=== PATIENT | male | born 1990 | race Caucasian/White ===

== ENCOUNTER → 2020-10-03 09:11 | Outpatient (CLI) | payer OTHER, SELFPAY ==
--- NOTE | 2020-10-03 | DI.ECHO.S_ITS ---
[facility] +---------+ : : [address] : : : : [id number] : : : : Phone: [phone]+ Echocardiogram Report + + :Name: KEYLA BLUE Study Date: 10/03/2020 Height: 68 in : :[facility] Weight: 205 lb : : Gender: Male BSA: 2.1 m2 : :: 1990 Age: 30 yrs BP: 144/87 mmHg: :Reason For Study: General medical exam : : Performed By: Beatrice Vuong : :Referring: AURORA RICHARDSON : + + Interpretation Summary 1) Normal left ventriciular size, thickness, wall motion, and systolic function (EF 60-65%). 2) Upper normal right ventricular size with normal function. 3) No signficant valvular abnormalities. 4) No prior Echo available for comparison. Procedure: A two-dimensional transthoracic echocardiogram with color flow and Doppler was performed. The study quality was technically adequate. There is no prior echocardiogram noted for this patient. The patient was in normal sinus rhythm during the exam. Left Ventricle: The left ventricle is normal in size and wall thickness. The ejection fraction is estimated to be 60-65%. Left ventricular systolic function appears normal without focal wall motion abnormalities. Right Ventricle: The right ventricular systolic function is normal. Atria: The left atrial size is normal. Right atrial size is normal. There is no Doppler evidence for an interatrial shunt. Mitral Valve: The mitral valve is normal in structure and function. There is trace mitral regurgitation. Aortic Valve: The aortic valve is trileaflet. The aortic valve opens well. There is no aortic valve stenosis. No aortic regurgitation is present. Tricuspid Valve: The tricuspid valve is normal in structure and function. There is a trace or physiologic amount of tricuspid regurgitation. Pulmonary artery pressures cannot be estimated because of the lack of a measurable TR jet velocity. Pulmonic Valve: The pulmonic valve leaflets are thin and pliable; valve motion is normal. There is no pulmonic valvular regurgitation. Great Vessels: The aortic root is normal size. The ascending aorta is normal in size. The pulmonary artery is normal size. The IVC is of normal diameter and collapses greater than 50% with a sniff. This suggests a low right atrial pressure of 3 mm Hg. Pericardium/ Pleura There is no pericardial effusion. MMode/2D Measurements & Calculations LVIDd: 5.5 cm LVOT diam: 2.1 cm LVIDs: 3.6 cm Ao root diam: 3.6 cm FS: 35.0 % asc Aorta Diam: 2.7 cm IVSd: 0.60 cm LVPWd: 0.67 cm LV schaefer. diameter/BSA (cm/m^2): 2.7 LV sys. diameter/BSA (cm/m^2): 1.7 LA A2 area: 11.0 cm2 RA long axis: 4.9 cm LA A4 area: 17.6 cm2 RA area: 16.5 cm2 LA length (vol): 5.4 cm RA vol: 47.3 ml LA vol: 30.3 ml RA : 22.9 ml/m2 LA vol index: 14.7 ml/m2 IVC diam: 1.3 cm RVD1 (basal): 4.0 cm TAPSE: 2.1 cm Doppler Measurements & Calculations Ao V2 max: 101.4 cm/sec LVOT Max Eric: 101.0 cm/sec Ao V2 mean: 70.0 cm/sec LV V1 max P.1 mmHg Ao max P.1 mmHg LV V1 VTI: 16.3 cm Ao mean P.1 mmHg TYREE(I,D): 3.3 cm2 Ao V2 VTI: 17.5 cm TYREE(V,D): 3.6 cm2 sev ratio: 0.93 TYREE indexed to BSA (cm^2/m^2): 1.6 MV E max eric: 74.9 cm/sec PA V2 max: 97.6 cm/sec MV A max eric: 54.9 cm/sec PA V2 mean: 66.8 cm/sec MV E/A: 1.4 PA mean P.0 mmHg Med Peak E' Eric: 8.8 cm/sec PA Accel Time: 0.13 sec E/E' med: 8.5 Lat Peak E' Eric: 16.8 cm/sec E/E' lat: 4.4 E/e' average: 6.5 MV dec time: 0.23 sec SV(LVOT): 58.0 ml Reading Physician:11:18 AM
== END ==
PROVIDERS: Referring Provider Physician Assistant; Visit Provider Physician Assistant
DX: Z00.00 Encounter for general adult medical examination without abnormal findings (principal)
CPT/HCPCS: 93306